=== PATIENT | female | born 1980 | race Hispanic/Latino ===

== ENCOUNTER 2019-05-05 20:19 | Emergency (ER) | payer OTHER | END 2019-05-05 20:42 | disposition home or self-care (01) | LOC: BURERS 20:19 | DX: O22.03 Varicose veins of lower extremity in pregnancy, third trimester (principal); Z3A.30 30 weeks gestation of pregnancy | CPT/HCPCS: 12001 ==

== ENCOUNTER 2019-07-02 08:14 | Emergency (ER) | payer OTHER | END 2019-07-02 09:22 | disposition home or self-care (01) | LOC: BURERS 08:14 | DX: O22.03 Varicose veins of lower extremity in pregnancy, third trimester (principal); Z3A.38 38 weeks gestation of pregnancy | CPT/HCPCS: 12001 ==

== ENCOUNTER 2021-05-14 19:47 | Emergency (ER) | payer BC ==
[2021-05-14] MEDS ORDERED: Ibuprofen 800 MG TAB ONE (20:16)
[2021-05-15 14:36] LABS: SARS-CoV-2 PCR by NAA Not Detected (NotDetected)
== END 2021-05-14 22:00 | disposition home or self-care (01) ==
LOC: BURERS 19:47
DX: J02.9 Acute pharyngitis, unspecified (principal); R05 Cough; R50.9 Fever, unspecified; Z20.822 Contact with and (suspected) exposure to COVID-19
CPT/HCPCS: 87081; 87430; 99283; U0003; U0005